=== PATIENT | female | born 1955 | race Caucasian/White ===

== ENCOUNTER 2017-12-30 14:34 | Emergency (ER) | payer OTHER ==
--- NOTE | 2017-12-30 18:14 | UC ---
Elbow Pain - HPI Summary HPI Summary: left elbow pain for 3 weeks no swelling or erythema - History of Current Complaint Chief Complaint: UCUpperExtremity Stated Complaint: ELBOW PAIN Time Seen by Provider: 12/30/17 18:13 Hx Obtained From: Patient ?: No Mechanism of Injury: none Onset/Duration: Weeks - 3, Atraumatic Pain Intensity: 0 Character: Aching Aggravating Factor(s): Movement, Pulling Alleviating Factor(s): Rest Associated Signs And Symptoms: Positive: Negative - Allergies/Home Medications Allergies/Adverse Reactions: Allergies Allergy/AdvReac Type Severity Reaction Status Date / Time MS Penicillins [Penicillins] Allergy Mild Rash Verified 12/30/17 15:21 MS Sulfa Drugs [Sulfa Drugs] Allergy Rash Verified 12/30/17 15:21 Home Medications: Home Medications Melatonin 12.5 mg PO SEE INSTRUCTIONS 12/30/17 [History Confirmed 12/30/17] PMH/Surg Hx/FS Hx/Imm Hx Previously Healthy: Yes - Surgical History Surgical History: Yes Surgery Procedure, Year, and Place: c-sections x 2 ; - Social History Occupation: Employed Full-time Lives: With Family Alcohol Use: Daily Alcohol Amount: 2 glasses wine/day Substance Use Type: None Smoking Status (MU): Former Smoker Type: Cigarettes Have You Smoked in the Last Year: No When Did the Patient Quit Smoking/Using Tobacco: 30 yrs ago Review of Systems Constitutional: Negative Skin: Negative Eyes: Negative ENT: Negative Respiratory: Negative Cardiovascular: Negative Gastrointestinal: Negative Genitourinary: Negative Motor: Negative Neurovascular: Negative Musculoskeletal: Arthralgia - left elbow pain Neurological: Negative Psychological: Negative Is Patient Immunocompromised?: No All Other Systems Reviewed And Are Negative: Yes Physical Exam Triage Information Reviewed: Yes Appearance: Well-Appearing, No Pain Distress, Well-Nourished Vital Signs: Initial Vital Signs Temp 98.8 F 12/30/17 15:18 Pulse 60 12/30/17 15:18 Resp 18 12/30/17 15:18 BP 134/78 12/30/17 15:18 Pulse Ox 99 12/30/17 15:18 Vital Signs Reviewed: Yes Eye Exam: Normal Eyes: Positive: Conjunctiva Clear ENT Exam: Normal ENT: Positive: Normal ENT inspection, Hearing grossly normal. Negative: Nasal congestion, Trismus, Muffled voice, Hoarse voice Dental Exam: Normal Neck exam: Normal Neck: Positive: Supple, Nontender Respiratory Exam: Normal Respiratory: Positive: Chest non-tender, No respiratory distress, No accessory muscle use Cardiovascular Exam: Normal Cardiovascular: Positive: RRR, Pulses Normal, Brisk Capillary Refill Musculoskeletal Exam: Normal Musculoskeletal: Positive: Strength Intact, ROM Intact, No Edema, Other: - epicondyle pain-left elbow Neurological Exam: Normal Neurological: Positive: Alert, Muscle Tone Normal Psychological Exam: Normal Skin Exam: Normal Elbow Pain Course/Dx - Course Course Of Treatment: tension band, medrol dose pack, follow with pcp or ortho - Differential Dx/Diagnosis Provider Diagnoses: left elbow tendonitis Discharge - Discharge Plan Condition: Stable Disposition: HOME Prescriptions: methylPREDNISolone [Medrol Dosepak 4 MG*] 4 mg PO .SEE BLANCA INSTRUCTION #1 blanca Patient Education Materials: Tennis Elbow (ED), Hypertension (ED) Referrals: Joellen Blandon MD [Primary Care Provider] - 1 Week
[2017-12-30 18:18] VITALS: BP 155/69
== END 2017-12-30 18:33 | disposition home or self-care (01) ==
LOC: UCEAST 14:34
DX: M77.12 Lateral epicondylitis, left elbow (principal); Z88.0 Allergy status to penicillin; Z88.2 Allergy status to sulfonamides; Z87.891 Personal history of nicotine dependence
CPT/HCPCS: 99212; G0463

== ENCOUNTER 2019-09-29 10:43 | Emergency (ER) | payer OTHER ==
--- NOTE | 2019-09-29 10:47 | UC ---
Lower Extremity/Ankle HPI - HPI Summary HPI Summary: CHIEF COMPLAINT and HPI: This is a 64-year-old female who suffered an injury to her left second toe on a 10 pound weight fell on it shortly before she came to the urgent care center. Description of Pain: Location:, left second toe Radiation:nonradiating Intensity:, mild discomfort, worse with walking. VITAL SIGNS & SaO2 REVIEWED. Within normal limits unless noted here. 136/63. Patient's blood pressure is being followed by her private physician. NURSES NOTE REVIEWED. "dropped a 10lb battery on left foot this am"bathroom after hollowing is taken [place] understands every - History of Current Complaint Stated Complaint: LEFT FOOT TOE INJURY Time Seen by Provider: 09/29/19 10:45 Hx Obtained From: Patient - Allergies/Home Medications Allergies/Adverse Reactions: Allergies Allergy/AdvReac Type Severity Reaction Status Date / Time Penicillins Allergy Rash Verified 09/29/19 10:47 Sulfa (Sulfonamide Allergy Rash Verified 09/29/19 10:47 Antibiotics) PMH/Surg Hx/FS Hx/Imm Hx - Additional Past Medical History Additional PMH: PAST MEDICAL HISTORY- CHRONIC and RECURRENT HEALTH PROBLEM LIST REVIEWED. Information relevant to present complaint: history of sciatica. history of shingles. VISIT HISTORY REVIEWED:noncontributory to present complaint. MEDICATIONS & ALLERGIES REVIEWED. allergic to penicillin and sulfa. no prescription medications. HYPERTENSION STATUS: FAMILY HISTORY: positive for breast cancer. SOCIAL HISTORY: non-smoker, lives with , professor at [employer]. Previously Healthy: Yes - Surgical History Surgical History: Yes Surgery Procedure, Year, and Place: c-sections x 2 ; - Social History Alcohol Use: Daily Alcohol Amount: 2 glasses wine/day Substance Use Type: None Smoking Status (MU): Former Smoker Type: Cigarettes Have You Smoked in the Last Year: No When Did the Patient Quit Smoking/Using Tobacco: 30 yrs ago Review of Systems All Other Systems Reviewed And Are Negative: Yes ENT: Positive: Negative Respiratory: Positive: Negative Cardiovascular: Positive: Negative Gastrointestinal: Positive: Negative Genitourinary: Positive: Negative Musculoskeletal: Positive: Other: - pain with walking, left second toe; eccymotic. Is Patient Immunocompromised?: No Physical Exam - Summary Physical Exam Summary: Appearance: The patient is well-appearing, is in no pain or distress, and is well-nourished. Eyes: Conjunctiva are clear. Pupils are equal and reactive to light and accommodation. Extra ocular muscle movement is intact. ENT: The hearing is grossly normal, the pharynx is normal, and the TMs are normal. There is no muffled or hoarse voice. No stridor. Neck: The neck is supple and there is no lymphadenopathy. Respiratory: The chest is non-tender to palpation and without crepitus. The lungs are clear, there are normal breath sounds, and there is no respiratory distress. No wheezes, rales or rhonchi. Cardiovascular: Heart sounds reveal a regular rate and rhythm. There are no clicks, rubs or murmurs. There are no carotid bruits or thrills. Circulation is grossly intact. Abdomen: The abdomen is soft and nontender. There is no organomegaly. Bowel sounds are present and within normal limits. No point tenderness at McBurneys point. No CVA tenderness. Musculoskeletal: Strength is intact. The patient moves all extremities. pain with walking, left second toe; ecchymotic. Mild tenderness to palpation. Neurological: The patient is alert. Motor and sensory are examination grossly intact. Speech is normal. Psychological: The patient displays age appropriate behavior, and is conversant. GCS=15. Skin: Negative for rashes. Triage Information Reviewed: Yes Lower Extremity Course/Dx - Course Course Of Treatment: This is a 64-year-old female who suffered an injury to her left second toe on a 10 pound weight fell on it shortly before she came to the urgent care center. . Physical examination shows an ecchymotic second toe of the left foot. There is mild swelling and tenderness to palpation. There is no open fracture. X- rays negative for fracture. Differential includes fracture versus contusion. My diagnosis is contusion of the left foot, second toe. I discussed with the patient body taping and we bouchra taped the toe prior to the patient leaving the urgent care center. She will elevate, ice and restrict activity as needed to deal with her pain. She will recheck at any time for increased pain or disability. I did mention the possibility that there could always be hidden fracture. - Differential Dx/Diagnosis Differential Diagnosis/HQI/PQRI: Fracture (Closed), Infection, Sprain, Strain, Tendonitis Provider Diagnosis: Contusion Discharge ED - Sign-Out/Discharge Documenting (check all that apply): Patient Departure All imaging exams completed and their final reports reviewed: Yes - Discharge Plan Condition: Stable Disposition: HOME Patient Education Materials: Contusion in Adults (ED) Referrals: Joellen Blandon MD [Primary Care Provider] - Additional Instructions: WE DISCUSSED: PLEASE SEEK CARE AT THE EMERGENCY DEPARTMENT IF SYMPTOMS WORSEN OR IF NEW SYMPTOMS DEVELOP. FOLLOW UP WITH YOUR PRIMARY CARE PHYSICIAN IF CONDITION CONTINUES BEYOND 3 DAYS WITHOUT IMPROVEMENT. YOUR DIAGNOSIS IS: contusion of the left second toe YOUR PRESCRIPTION RECOMMENDATION IS: none. OTHER INSTRUCTIONS: Hypertension Discharge Instructions: BP was 136/63; the first number is slightly high. Recheck over the next month or two. FOR PAIN AND/OR SLEEP: For pain: Ibuprofen (Motrin and other brand names) 400-600mg PLUS acetaminophen (Tylenol and other brand names) 500mg - 1000mg every 8 hours. ALSO: bouchra tape; elevate; ice; restrict activity, as needed, until pain free. Recheck at any time for increased pain or disability. - Billing Disposition and Condition Condition: STABLE Disposition: Home
[2019-09-29 10:51] VITALS: BP 136/63
== END 2019-09-29 11:53 | disposition home or self-care (01) ==
LOC: UCEAST 10:43
DX: S90.122A Contusion of left lesser toe(s) without damage to nail, initial encounter (principal); Z88.0 Allergy status to penicillin; Z88.2 Allergy status to sulfonamides; Z87.891 Personal history of nicotine dependence; W20.8XXA Other cause of strike by thrown, projected or falling object, initial encounter; Y92.9 Unspecified place or not applicable
CPT/HCPCS: 99211; G0463

== ENCOUNTER 2020-01-22 12:38 | Emergency (ER) | payer MEDICARE, OTHER ==
[2020-01-22 12:53] VITALS: BP 142/70
--- NOTE | 2020-01-22 12:58 | UC ---
Throat Pain/Nasal [place] HPI - HPI Summary HPI Summary: 65 yo female presents with cold symptoms. She tells me over the last 4 days has had runny nose, post nasal drip, sore throat, and dry cough. She has not been taking anything OTC for her symptoms. 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 She denies fever, chills, SOB, chest pain, abdominal pain, n/v. She does not smoke. - History of Current Complaint Chief Complaint: UCGeneralIllness Stated Complaint: COLD SYMPTOMS Time Seen by Provider: 01/22/20 12:58 Hx Obtained From: Patient Onset/Duration: Gradual Onset Severity: Mild Pain Intensity: 1 Pain Scale Used: 0-10 Numeric - Allergies/Home Medications Allergies/Adverse Reactions: Allergies Allergy/AdvReac Type Severity Reaction Status Date / Time Penicillins Allergy Rash Verified 01/22/20 12:53 Sulfa (Sulfonamide Allergy Rash Verified 01/22/20 12:53 Antibiotics) Home Medications: Home Medications Motrin TAB* 200 mg PO Q8HR PRN 02/16/14 [History Confirmed 01/22/20] Benzonatate CAP* [Tessalon 100 MG CAP*] 100 mg PO TID PRN #21 cap 01/22/20 [Rx] guaiFENesin ER TAB [Mucinex*] 600 mg PO BID #20 tab.er 01/22/20 [Rx] PMH/Surg Hx/FS Hx/Imm Hx - Additional Past Medical History Additional PMH: None - Surgical History Surgical History: Yes Surgery Procedure, Year, and Place: c-sections x 2 ; - Family History Known Family History: Positive: Hypertension - Social History Lives: With Family Alcohol Use: Daily Alcohol Amount: 2 glasses wine/day Substance Use Type: None Smoking Status (MU): Former Smoker Type: Cigarettes Have You Smoked in the Last Year: No When Did the Patient Quit Smoking/Using Tobacco: 30 yrs ago Review of Systems All Other Systems Reviewed And Are Negative: No Constitutional: Positive: Negative Skin: Positive: Negative Eyes: Positive: Negative ENT: Positive: Nasal Discharge Respiratory: Positive: Cough Cardiovascular: Positive: Negative Gastrointestinal: Positive: Negative Neurological/Mental Status: Positive: Negative Psychological: Positive: Negative Physical Exam - Summary Physical Exam Summary: GENERAL: NAD. WDWN. No pain distress. SKIN: No rashes, sores, lesions, or open wounds. HEENT: Head: AT/NC Eyes: EOM intact. Conjunctiva clear without inflammation or discharge. Ears: Hearing grossly normal. TMs intact, no bulging, erythema, or edema. Nose: Nasal mucosa pink and moist with clear rhinorrhea. NTTP maxillary and frontal sinus. Throat: Posterior oropharynx without exudates, erythema, or tonsillar enlargement. Uvula midline. NECK: Supple. Nontender. No lymphadenopathy. CHEST: CTAB. No r/r/w. No accessory muscle use. Breathing comfortably and in no distress. CV: RRR. Pulses intact. Cap refill <2seconds NEURO: Alert. PSYCH: Age appropriate behavior. Triage Information Reviewed: Yes Vital Signs: Initial Vital Signs Temp 97.5 F 01/22/20 12:48 Pulse 69 01/22/20 12:48 Resp 18 01/22/20 12:48 BP 142/70 01/22/20 12:48 Pulse Ox 98 01/22/20 12:48 Laboratory Tests 01/22/20 13:18 Influenza A (Rapid) Negative Influenza B (Rapid) Negative Vital Signs Reviewed: Yes Throat Pain/Nasal Course/Dx - Course Course Of Treatment: POC flu negative. Suspect viral/cold. Advised to try OTC supportive care and recheck if symptoms do not improve - Differential Dx/Diagnosis Provider Diagnosis: Viral syndrome Discharge ED - Sign-Out/Discharge Documenting (check all that apply): Patient Departure All imaging exams completed and their final reports reviewed: No Studies - Discharge Plan Condition: Stable Disposition: HOME Prescriptions: Benzonatate CAP* [Tessalon 100 MG CAP*] 100 mg PO TID PRN #21 cap PRN Reason: Cough guaiFENesin ER TAB [Mucinex*] 600 mg PO BID #20 tab.er Patient Education Materials: Cold Symptoms (ED) Referrals: No Primary Care Phys,NOPCP [Primary Care Provider] - Additional Instructions: YOUR FLU TEST WAS NEGATIVE TODAY Your symptoms are likely from a viral infection. Viral infections do not respond to antibiotics and are limited to the treatment of symptoms. Viral infections typically run their course in 7-10 days. Drink plenty of fluids, especially if you are running any fever. Use salt water gargles several times a day. Take over the counter acetaminophen (Tylenol) or ibuprofen (Advil, Motrin) according to directions as needed for pain or fever. You may also use Chloraseptic spray or Cepacol lonzenges according to directions which contain a numbing medication and can provide some temporary relief from a sore throat. Return here or follow up with your primary care provider in 7 days if symptoms persist. - Billing Disposition and Condition Condition: STABLE Disposition: Home
[2020-01-22 13:30] LABS: Influenza A Molecular Negative (Negative); Influenza B Molecular Negative (Negative)
== END 2020-01-22 13:35 | disposition home or self-care (01) ==
LOC: UCEAST 12:38
DX: B34.9 Viral infection, unspecified (principal); J02.9 Acute pharyngitis, unspecified; R09.89 Other specified symptoms and signs involving the circulatory and respiratory systems; R09.82 Postnasal drip; R05 Cough; Z88.0 Allergy status to penicillin; Z88.2 Allergy status to sulfonamides; Z87.891 Personal history of nicotine dependence
CPT/HCPCS: 99212; G0463